=== PATIENT | female | born 1940 | race Caucasian/White ===

== ENCOUNTER 2017-08-10 17:27 | Emergency (ER) | payer MEDICARE, OTHER ==
[2017-08-10 17:50] VITALS: BP 142/60
--- NOTE | 2017-08-10 18:06 | UC ---
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 Symptoms had resolved until this morning. She developed epigastric pain this morning that became very severe at 10 out of 10. She went to work and came home in significant pain. Her son Giovanni states that she was doubled over in pain. They called the primary care provider who advised either be seen at the office regarding the emergency room. The were going to get her in on 08/13. Pain started to improve on the way here and he decided to come here to see if they really need to go to the ER. Pt is taking plavix for CVA 4 years ago. No recurrence. Reports she is unaware that Plavix can increase bleed as well as nonsteroidal anti- inflammatories which she takes for pain. Denies any dark tarry like stool. She still has her gallbladder. Denies right upper quadrant pain. No fevers or chills. - History of Current Complaint Chief Complaint: UCAbdominalPain Stated Complaint: UPPER ABDOMINAL PAIN/HX GASTRITIS Time Seen by Provider: 08/10/17 17:39 Pain Intensity: 4 Allergies/Adverse Reactions: Allergies Allergy/AdvReac Type Severity Reaction Status Date / Time cough medicine Allergy Unknown Uncoded 08/10/17 17:50 Reaction Details Home Medications: Home Medications Clopidogrel TAB* [Plavix TAB*] 75 mg PO DAILY 08/10/17 [History Confirmed ] Glucosamine/D3/Boswellia Isabelle [Osteo Bi-Flex Tablet] 1 each PO DAILY 08/10/17 [ History Confirmed 08/10/17] raNITIdine HCl [Ranitidine HCl] 150 mg PO BID 08/10/17 [History Confirmed ] PMH/Surg Hx/FS Hx/Imm Hx Previously Healthy: Yes Neurological History: CVA - Surgical History Surgical History: Yes Surgery Procedure, Year, and Place: cataract repair. skin cancer removed from nose. needle biopsy right breast - Family History Known Family History: Positive: Hypertension - Social History Alcohol Use: None Substance Use Type: None Smoking Status (MU): Former Smoker When Did the Patient Quit Smoking/Using Tobacco: quit at age 19 - Immunization History Most Recent Influenza Vaccination: 2013 Most Recent Tetanus Shot: within 10 years Most Recent Pneumonia Vaccination: has had Review of Systems Constitutional: Negative Skin: Negative Eyes: Negative ENT: Negative Respiratory: Negative Cardiovascular: Negative Gastrointestinal: Abdominal Pain Genitourinary: Negative Motor: Negative Neurovascular: Negative Musculoskeletal: Negative Neurological: Negative Psychological: Negative Is Patient Immunocompromised?: No All Other Systems Reviewed And Are Negative: Yes Physical Exam Triage Information Reviewed: Yes Appearance: Well-Appearing, No Pain Distress, Well-Nourished - really very pleasant Vital Signs: Initial Vital Signs Temp 98.8 F 08/10/17 17:43 Pulse 84 08/10/17 17:43 Resp 20 08/10/17 17:43 BP 142/60 08/10/17 17:43 Pulse Ox 100 08/10/17 17:43 Vital Signs Reviewed: Yes Eye Exam: Normal ENT Exam: Normal ENT: Positive: Pharynx normal, TMs normal Neck exam: Normal Neck: Positive: Supple, Nontender, No Lymphadenopathy Respiratory Exam: Normal Respiratory: Positive: Lungs clear, Normal breath sounds, No respiratory distress, No accessory muscle use. Negative: Crackles, Rhonchi, Stridor, Wheezing Cardiovascular Exam: Normal Cardiovascular: Positive: RRR, No Murmur, Pulses Normal, Brisk Capillary Refill Abdomen Description: Positive: No Organomegaly, Soft, Other: - + mild epigastric tenderness, mild RUQ tenderness but neg Jang's sign. no r/g. no HSM. no masses.. Negative: Pulsatile Mass Bowel Sounds: Positive: Present Musculoskeletal Exam: Normal Musculoskeletal: Positive: No Edema Psychological Exam: Normal Skin Exam: Normal Abd Pain Female Course/Dx - Course Course Of Treatment: Discussed possibility of PUD, gastric erosions in light of clopidrogel adn NSAIDs. light pionk stool may be d/y known hemorrhoid hx. She had sever pain earlier but it has completely resolved prior to arrival here. I do not see the utility of going to ER since the pain has resolved. added pantoprazole that will further help heal any gastritis/erosions and instructed to go to the ER immediately if pain recurs. They are very reliable and I trust that they would go. They are very happy w/ this plan and very agreeable. - Differential Dx/Diagnosis Differential Diagnosis: Constipation, Gall Bladder Disease, Irritable Bowel Syndrome, Pancreatitis, Peptic Ulcer Disease Provider Diagnoses: epigastric pain Discharge - Sign-Out/Discharge Documenting (check all that apply): Discharge/Admit/Transfer - Discharge Plan Condition: Stable Disposition: HOME Prescriptions: Pantoprazole TAB (NF) [Protonix TAB (NF)] 40 mg PO DAILY 30 Days #30 tab Patient Education Materials: Epigastric Pain (ED) Referrals: Armen Davidson MD [Primary Care Provider] - 3 Days Additional Instructions: -We talked today about the concern for a possible ulcer or bleeding from stomach. Being on the clopidrogel can cause increased risk of bleeding. Taking any nonsteroidal anti-inflammatory such as ibuprofen, Advil, Aleve or Motrin can increase this risk further. You should avoid any nonsteroidal anti- inflammatories. It is reassuring that her abdominal pain has resolved. If the pain recurs over the weekend, you should go directly to the emergency room. He should follow up with her primary care physician on Sunday. You will likely need further GI testing. Gallbladder pain cannot be totally excluded. -I added the medication pantoprazole. Pantoprazole does not interact with clopidrogel. Pantoprazole could help heal anytime if erosions or ulcers. He should take this first thing in the morning on an empty stomach and try to eat tonight about 30-60 min later for best results. You can continue the ranitidine as well. - Billing Disposition and Condition Condition: STABLE Disposition: Home
== END 2017-08-10 18:44 | disposition home or self-care (01) ==
LOC: UCCORT 17:27
DX: R10.13 Epigastric pain (principal); Z79.01 Long term (current) use of anticoagulants; I63.9 Cerebral infarction, unspecified; Z87.891 Personal history of nicotine dependence
CPT/HCPCS: 99212; G0463